=== PATIENT | female | born 1995 | race African-American/Black ===

== ENCOUNTER 2017-04-14 12:46 | Emergency (ER) | payer MEDICAID, OTHER ==
[~2017-04-14] VITALS: Ht 170.2 cm; Wt 80.0 kg
[~2017-04-14 12:46] MED LIST: IBUP-232 PO
[2017-04-14 12:49] VITALS: BP 139/68; PULSE 82; RESP 15; TEMP 98.2; O2SAT 98
[2017-04-14 13:31] LABS: BACTERIA, URINE FEW /hpf; BLOOD, URINE SMALL (NEG); COMMENT (UR) CULTURE INDICATED; CULTURE IF INDICATED CULTURE INDICATED; GLUCOSE,URINE NEG (NEG); KETONE, URINE NEG (NEG); MUCUS URINE MANY /lpf (OCC); NITRITE,URINE NEG (NEG); PH, URINE 5.5 (5.0-8.5); SQUAMOUS EPITHELIAL CELL URINE 21 /hpf (0-5); URINE COLOR YELLOW (YELLW/STRAW)
[2017-04-14] MEDS ORDERED: CEPH-460 PO (13:46)
--- NOTE | 2017-04-14 13:46 | PD ---
HPI Chief Complaint: Flank/Kidney Pain Time Seen by Provider: 13:41 Travel History International Travel<30 days: No Contact w/Intl Traveler<30days: No Traveled to known affect area: No History of Present Illness HPI 21-year-old female here with complaint of low abdominal pain and left-sided flank pain 2 days with associated and stream dysuria. No hematuria. No fevers chills, nausea vomiting. No abnormal vaginal discharge. PFSH Past Medical History Medical History: Denies Significant Hx Diminished Hearing: No Immunizations Current: Yes ?: Not LMP: MARCH 2017 Social History Alcohol Use: No Tobacco Use: No Substance Use: No Allergies-Medications (Allergen,Severity, Reaction): Coded Allergies: No Known Allergies (Verified , 05/21/16) Reported Meds & Prescriptions Reported Meds & Active Scripts Active Keflex (Cephalexin) 500 Mg Capsule 500 Mg PO TID 7 Days Motrin (Ibuprofen) 600 Mg Tab 600 Mg PO QID GIVE WITH FOOD Review of Systems Except as stated in HPI: all other systems reviewed are Neg Physical Exam Narrative GENERAL: Well-appearing female in no acute distress SKIN: Focused skin assessment warm/dry. HEAD: Normocephalic. EYES: No scleral icterus. No injection or drainage. ENT: Mucous membranes pink and moist. NECK: Supple CARDIOVASCULAR: Regular rate and rhythm. RESPIRATORY: No accessory muscle use. GASTROINTESTINAL: Abdomen soft, non-tender, nondistended. No CVA tenderness MUSCULOSKELETAL: Normal gait NEUROLOGICAL: Awake and alert. Normal speech. PSYCHIATRIC: Appropriate mood and affect; insight and judgment normal. Data Data Last Documented VS Vital Signs Date Time Temp Pulse Resp B/P Pulse Ox O2 Delivery O2 Flow Rate FiO2 04/14/17 12:49 98.2 82 15 139/68 98 Orders Urinalysis - C+S If Indicated (04/14/17 13:05) Ed Urine Pregnancytest Poc (04/14/17 13:23) Urine Culture (04/14/17 13:05) Labs Laboratory Tests Test 04/14/17 13:05 Urine Color YELLOW Urine Turbidity HAZY Urine pH 5.5 Urine Specific [place] 1.025 Urine Protein 30 mg/dL Urine Glucose (UA) NEG mg/dL Urine Ketones NEG mg/dL Urine Occult Blood SMALL Urine Nitrite NEG Urine Bilirubin NEG Urine Urobilinogen 2.0 MG/DL Urine Leukocyte Esterase LARGE Urine RBC 12 /hpf Urine WBC 28 /hpf Urine Squamous Epithelial 21 /hpf Cells Urine Bacteria FEW /hpf Urine Mucus MANY /lpf Microscopic Urinalysis Comment CULTURE INDICATED MDM Medical Decision Making Medical Screen Exam Complete: Yes Emergency Medical Condition: Yes Medical Record Reviewed: Yes Differential Diagnosis 21-year-old female here with suprapubic pain, left flank pain and end stream dysuria. Differential includes cystitis versus early pyelonephritis, less likely ureterolithiasis, Narrative Course Urine test negative. Urinalysis notable for positive UTI. We'll treat with Keflex for home Diagnosis Primary Impression: Urinary tract infection Qualified Code: N30.00 - Acute cystitis without hematuria Referrals: [facility] as needed Additional Instructions: Antibiotics as prescribed. Med/Other Pt SpecificInfo: Prescription(s) given Scripts Cephalexin (Keflex)500 Mg [id number] Mg PO TID 7 Days Ref 0 Prov:Theodora Valencia MD 04/14/17 Disposition: 01 DISCHARGE HOME Condition: Stable Theodora Valencia MD Apr 14, 2017 13:46
[2017-04-14 14:54] VITALS: BP 106/57; PULSE 80; RESP 18; O2SAT 100
== END 2017-04-14 14:56 | disposition home or self-care (01) ==
LOC: NEPD 12:46
DX: N39.0 Urinary tract infection, site not specified (principal); B96.89 Other specified bacterial agents as the cause of diseases classified elsewhere
CPT/HCPCS: 81001; 84703; 87086; 99283